=== PATIENT | male | born 1955 | race Caucasian/White ===

== ENCOUNTER 2020-05-15 16:32 | Emergency (ER) | payer OTHER ==
[~2020-05-15] VITALS: Ht 185 cm; Wt 90.0 kg
[2020-05-15] MEDS ORDERED: cefTRIAXone 1,000 MG/2.86 ml vial (IM ONLY) IM STA (18:20)
[2020-05-15] MEDS ORDERED: RABIES IMMUNE GLOBULIN 300 UNIT/ML 5 ML (HyperRAB) IM ONE ×2 (18:22→18:30)
[2020-05-15] MEDS ORDERED: RABIES VACCINE HUMAN DIPL CELL 1 ML/2.5 UNITS SYR ONE (18:22)
[2020-05-15] MEDS ORDERED: RABIES VACCINE HUMAN DIPL CELL 1 ML/2.5 UNITS SYR IM ONE (18:30)
[2020-05-15] MEDS ORDERED: LIDOCAINE 1% INJ 20 ML 20 ML VIAL INJ ONE (18:30)
--- NOTE | 2020-05-15 18:35 | ED General ---
General Chief Complaint: Bite-Animal/Human/Insect Stated Complaint: ANIMAL BIT ON RT HAND Nursing Triage Note: PT REPORTS HE WAS BITEN BY A STRAY CAT LAST PM WHILE TRYING TO PREVENT THE CAT FROM HURTING HIS DOG. RIGHT HAND HAS PUNCTURE ARROYO AND SCRATCHES ON THE FINGER SAND THE KNUCKLES. Nursing Sepsis Screen: No Definite Risk Source of Information: Patient History of Present Illness Date Seen by Provider: May 15, 2020 Time Seen by Provider: 17:02 Initial Comments 65 yo male presenting with complaints of cat bite and scratches to right hand and fingers from when he tried to break up a fight between his dog and a feral cat. In the process he has several puncture arroyo and scratches to his hands and fingers. He has redness and swelling and pain. He denies any fever or chills. The middle finger is the worst of his right hand. The swelling and redness is just on his fingers and hand and is not spreading up to his wrist or forearm. He did go to urgent care and they updated his tetanus shot and sent a prescription for oral antibiotics to the [facility] pharmacy but sent him to the ED to get Rabies vaccine and immunoglobulin. He reports an allergy to cats as well Allergies and Home Medications Allergies Coded Allergies: No Known Drug Allergies (Unverified , 05/15/20) Patient Home Medication List Home Medication List Reviewed: Yes Review of Systems Review of Systems Constitutional: No chills, No fever EENTM: no symptoms reported Respiratory: no symptoms reported Cardiovascular: no symptoms reported Gastrointestinal: no symptoms reported Genitourinary: no symptoms reported Musculoskeletal: see HPI Skin: see HPI Psychiatric/Neurological: Denies Numbness, Denies Paresthesia Hematologic/Lymphatic: Denies Easy Bleeding, Denies Easy Bruising Immunological/Allergic: see HPI Past Mxqzqdy-Pplmqp-Bxvxck Hx Past Med/Social Hx: Reviewed Nursing Past Med/Soc Hx Patient Social History Alcohol Use: Regular Use Alcohol Beverage of Choice: Beer, Whiskey Smoking Status: Never a Smoker 2nd Hand Smoke Exposure: No Recent Infectious Disease Expo: No Physical Exam Vital Signs Vital Signs - First Documented 05/15/20 17:07 Temp 37.5 Pulse 75 Resp 18 B/P (MAP) 161/98 (119) Pulse Ox 100 O2 Delivery Room Air Capillary Refill : Less Than 3 Seconds Height, Weight, BMI Height: '" Weight: lbs. oz. kg; 26.00 BMI Method: General Appearance: No Apparent Distress, WD/WN Extremity: Normal Capillary Refill, Inflammation (with redness, swelling and tender to palpation and movement of fingers and right hand. multiple puncture arroyo and abrasions on right hand and fingers. no drainage), Swelling (right hand and fingers, especially middle finger), Other (slight decrease in ROM of right middle finger due to swelling and pain) Neurologic/Psychiatric: Alert, Oriented x3, No Motor/Sensory Deficits Skin: Warm/Dry, Erythema (with swelling, puncture arroyo and scratches to right hand and fingers. Tender and warm to touch) Progress/Results/Core Measures Suspected Sepsis Recent Fever Within 48 Hours: No Infection Criteria Present: Suspected New Infection New/Unexplained Altered Menta: No Sepsis Screen: No Definite Risk SIRS Temperature: Pulse: 75 Respiratory Rate: 18 Blood Pressure 161 /98 Mean: 119 Results/Orders My Orders Orders - SIDDHARTHA LOPEZ MD Rabies Immune Globulin/Pf Inj (Hyperrab (05/15/20 18:30) Rabies Vaccine Human Dipl Cell (Rabavert (05/15/20 18:30) Ceftriaxone For Im Use (Rocephin For Im (05/15/20 18:20) Lidocaine 1% Inj 20 Ml (Xylocaine 1% Inj (05/15/20 18:30) Rabies Immune Globulin/Pf Inj (Hyperrab (05/15/20 18:22) Rabies Vaccine Human Dipl Cell (Rabavert (05/15/20 18:22) Medications Given in ED Current Medications Medications Dose Ordered Sig/Danni Route Start Time Stop Time Status Last Admin Dose Admin Lidocaine HCl 2.1 ml ONCE ONCE INJ 05/15/20 18:30 05/15/20 18:31 DC 05/15/20 18:35 2.1 ML Rabies Immune Globulin 20 UNITS/KG ONCE ONCE IM 05/15/20 18:30 05/15/20 18:31 DC 05/15/20 18:37 1,800 UNIT Rabies Vaccine Human Diploid Cell 1 ml ONCE ONCE IM 05/15/20 18:30 05/15/20 18:31 DC 05/15/20 18:39 1 ML Vital Signs/I&O 05/15/20 05/15/20 17:07 18:55 Temp 37.5 Pulse 75 75 Resp 18 16 B/P (MAP) 161/98 (119) 155/62 Pulse Ox 100 100 O2 Delivery Room Air Room Air Capillary Refill : Less Than 3 Seconds Blood Pressure Mean: 119 Progress Note : Progress Note order Rabies vaccine, Rabies immunoglobuin 20 IU/kg or 1800 IU which comes out to 6 ml, Rocephin 1 gm IM. Counseled patient on follow-up and return precautions. Advised to the redness and swelling will get a little worse before it improves with antibiotics. Advised if he was not seeing an improvement in the next 48 hours or if it continues to worsen with fevers or purulent drainage that he should return or go to [facility] as he may need IV antibiotics and admission. Departure Impression Primary Impression: Cat bite of multiple sites of right hand and fingers with infection Qualified Codes: S61.451A - Open bite of right hand, initial encounter; S61.259A - Open bite of unspecified finger without damage to nail, initial encounter; L08.9 - Local infection of the skin and subcutaneous tissue, unspecified; W55.01XA - Bitten by cat, initial encounter Additional Impression: Cellulitis of multiple sites of right hand and fingers Disposition: HOME, SELF-CARE Condition: Stable Departure-Patient Inst. Decision time for Depature: 18:35 Referrals: OSIEL ZAVALA APRN (PCP/Family) Primary Care Physician Patient Instructions: Animal Bites ED, Cellulitis (Skin Infection), Adult ED, Rabies Immune Globulin (Human), Rabies Vaccine Add. Discharge Instructions: Follow up with clinic for continued Rabies vaccine injections. Your next injections are on TuesdayMay 18 so you may have to return here or have it one day late in the clinic on Tuesday. , Make sure to take all the antibiotics prescribed for you. If the redness and swelling continues to spread up your arm or you have fevers over 101 that continue over the next 48 hours then return or check with the hospital in [place] as you may need admitted for IV antibiotics. All discharge instructions reviewed with patient and/or family. Voiced understanding. SIDDHARTHA LOPEZ MD May 15, 2020 18:35
[2020-05-15 18:55] VITALS: BP 155/62
== END 2020-05-15 18:50 | disposition home or self-care (01) ==
LOC: EDUNIT# 16:32 → ER FS 16:33
DX: S61.431A Puncture wound without foreign body of right hand, initial encounter (principal); L03.113 Cellulitis of right upper limb; Z23 Encounter for immunization; W55.01XA Bitten by cat, initial encounter
CPT/HCPCS: 90375; 90675; 99284

== ENCOUNTER 2020-05-30 12:05 | Outpatient (RCR) | payer OTHER ==
[2020-05-19 15:25] VITALS: BP 169/109
[2020-05-23 08:00] VITALS: BP 160/111
[~2020-05-30] VITALS: Ht 185.5 cm; Wt 84.0 kg
[2020-05-30 12:00] VITALS: BP 154/101
[~2020-05-30 12:05] MED LIST: RABIES VACCINE HUMAN DIPL CELL 1 ML/2.5 UNITS SYR INJ ONE
[2020-05-30] MEDS ORDERED: RABIES VACCINE HUMAN DIPL CELL 1 ML/2.5 UNITS SYR INJ ONE (15:30)
== END 2020-05-30 12:40 | disposition home or self-care (01) ==
LOC: SDC 12:05
PROVIDERS: ATTEND Family Medicine
DX: Z23 Encounter for immunization (principal)
CPT/HCPCS: 90471; 90675

== ENCOUNTER → 2020-09-02 | Outpatient (CLI) | payer OTHER ==
--- NOTE | 2020-09-02 18:30 | Diagnostic Imaging Report ---
EXAMINATION: Left shoulder 2 or more views. HISTORY: Shoulder pain. COMPARISON: None available. FINDINGS: There is a left shoulder hemiarthroplasty with superior subluxation of the humeral component. No fracture is seen. Acromioclavicular joint is normal. IMPRESSION: 1. Left shoulder hemiarthroplasty with superior subluxation of the humeral component, correlate for rotator cuff tear. Dictated by: Dictated on workstation # [id number]
== END ==
LOC: RAD FS 13:51
PROVIDERS: ATTEND Nurse Practitioner Family
DX: M25.512 Pain in left shoulder (principal); Z96.612 Presence of left artificial shoulder joint
CPT/HCPCS: 73030

== ENCOUNTER → 2020-09-09 | Outpatient (CLI) | payer OTHER ==
--- NOTE | 2020-09-09 16:10 | Diagnostic Imaging Report ---
INDICATION: Right shoulder pain. 4 views of the right shoulder are obtained. There is no prior study for comparison. FINDINGS: There is no acute fracture or dislocation. Glenohumeral joint and AC joint appear unremarkable. IMPRESSION: Negative right shoulder. Dictated by: Dictated on workstation # [id number]
== END ==
LOC: RAD FS 13:58
PROVIDERS: ATTEND Nurse Practitioner
DX: M25.511 Pain in right shoulder (principal)
CPT/HCPCS: 73030

== ENCOUNTER 2020-09-18 15:31 | Emergency (ER) | payer OTHER ==
[~2020-09-18] VITALS: Ht 170 cm; Wt 81.0 kg
[2020-09-18] MEDS ORDERED: BACITRACIN OINTMENT 28 GM TUBE TOP SCH (15:45)
[2020-09-18] MEDS ORDERED: LIDOCAINE 1% INJ 20 ML 20 ML VIAL INJ ONE (15:45)
--- NOTE | 2020-09-18 15:49 | ED Integumentary General ---
General Chief Complaint: Trauma-Non Activation Stated Complaint: HEAD LAC History of Present Illness Date Seen by Provider: Sep 18, 2020 Time Seen by Provider: 15:45 Initial Comments 62-year-old male presents with a cut to his forehead. States he fell last night and went back to sleep and did not seek medical care till the afternoon and stated no about once. He has applied antibiotic medicated. Denies headache, confusion or dizziness. He is not taking blood thinner denies any weakness, difficulty walking or speaking. Denies neck pain, back or extremity pain. Allergies and Home Medications Allergies Coded Allergies: No Known Drug Allergies (Unverified , 05/15/20) Patient Home Medication List Home Medication List Reviewed: Yes Review of Systems Review of Systems Constitutional: No dizziness, No fever, No malaise, No weakness EENTM: see HPI, no symptoms reported; No hearing loss, No ear pain, No blurred vision, No vision loss, No hoarseness, No epistaxis, No nose congestion, No nose pain Respiratory: no symptoms reported Cardiovascular: no symptoms reported; No edema, No palpitations, No syncope Gastrointestinal: No abdominal pain, No loss of appetite, No nausea, No vomiting Musculoskeletal: No back pain, No joint pain, No neck pain Skin: see HPI, other (facial lac) Psychiatric/Neurological: See HPI; Denies Headache, Denies Numbness, Denies Paresthesia, Denies Seizure, Denies Tingling, Denies Tremors, Denies Weakness Past Pszdtey-Eldubq-Beygil Hx Past Med/Social Hx: Reviewed Nursing Past Med/Soc Hx Patient Social History Alcohol Beverage of Choice: Beer, Whiskey 2nd Hand Smoke Exposure: No Physical Exam Vital Signs Vital Signs - First Documented 09/18/20 15:35 Temp 36.1 Pulse 80 Resp 16 B/P (MAP) 154/81 (105) Pulse Ox 97 O2 Delivery Room Air Capillary Refill : General Appearance: WD/WN, no apparent distress HEENT: PERRL/EOMI, normal ENT inspection Neck: non-tender, full range of motion, supple Cardiovascular: regular rate, rhythm, no edema, no JVD Respiratory: chest non-tender, lungs clear, normal breath sounds Back: normal inspection, no CVA tenderness Extremities: normal range of motion, non-tender, normal inspection, no pedal edema, no calf tenderness Neurologic/Psychiatric: hhas II-XII nml as tested, no motor/sensory deficits, alert, normal mood/affect, oriented x 3 Skin: normal color, warm/dry, other (stellate laceration- lower, right central forehead above R eyebrow and nose- 5cm total) Procedures/Interventions Wound Location: Face Wound Length (cm): 5 Wound's Depth, Shape: stellate, contused tissue Wound Explored: no foreign body removed Irrigated w/ Saline (ccs): 20 Anesthesia: 1% Lidocaine Volume Anesthetic (ccs): 4 Suture: Vicryl Suture Size: 4-0 Number of Sutures: 6 Sterile Dressing Applied?: Yes Progress/Results/Core Measures Results/Orders My Orders Orders - ROSIO RESENDEZ DO Lidocaine 1% Inj 20 Ml (Xylocaine 1% Inj (09/18/20 15:45) Bacitracin Ointment (Bacitracin Ointment (09/18/20 15:45) Medications Given in ED Current Medications Medications Dose Ordered Sig/Danni Route Start Time Stop Time Status Last Admin Dose Admin Lidocaine HCl 20 ml ONCE ONCE INJ 09/18/20 15:45 09/18/20 15:46 DC 09/18/20 15:56 20 ML Vital Signs/I&O 09/18/20 15:35 Temp 36.1 Pulse 80 Resp 16 B/P (MAP) 154/81 (105) Pulse Ox 97 O2 Delivery Room Air Departure Impression Primary Impression: Facial laceration Qualified Codes: S01.81XA - Laceration without foreign body of other part of head, initial encounter Additional Impression: Fall from ground level Disposition: 01 HOME, SELF-CARE Condition: Improved Departure-Patient Inst. Decision time for Depature: 16:18 Referrals: SELFDIONISIO MD (PCP/Family) Primary Care Physician Patient Instructions: Laceration Repair With Stitches (DC) Add. Discharge Instructions: Your stitches are "dissolvable" and do not typically need to be removed. See your doctor in 5 to 7 days for a re-evaluation of your wound. All discharge instructions reviewed with patient and/or family. Voiced understanding. ROSIO RESENDEZ DO Sep 18, 2020 15:49
[2020-09-18] MEDS ORDERED: PANT40TA52 (15:53)
[2020-09-18] MEDS ORDERED: LOSA100T57 (15:53)
[2020-09-18] MEDS ORDERED: METO50TA15 (15:53)
[2020-09-18 16:25] VITALS: BP 154/81
== END 2020-09-18 16:25 | disposition home or self-care (01) ==
LOC: EDUNIT# 15:31 → ER FS 15:32
DX: S01.81XA Laceration without foreign body of other part of head, initial encounter (principal); W18.30XA Fall on same level, unspecified, initial encounter
CPT/HCPCS: 12002

== ENCOUNTER 2020-09-19 12:20 | Emergency (ER) | payer OTHER ==
[~2020-09-19 12:20] MED LIST changes: +LOSA100T57; +METO50TA15; +PANT40TA52; -RABIES VACCINE HUMAN DIPL CELL 1 ML/2.5 UNITS SYR INJ ONE
[2020-09-19 12:32] VITALS: BP 138/86
--- NOTE | 2020-09-19 12:33 | ED EENT ---
History of Present Illness General Chief Complaint: Facial Problems Stated Complaint: FACIAL SWELLING History of Present Illness Date Seen by Provider: Sep 19, 2020 Time Seen by Provider: 12:27 Initial Comments 65-year-old male presents for recheck following a fall. Patient fell yesterday and was seen in the ER. Patient has sutures above his right eye and forehead. Today he presents with bilateral periorbital swelling swelling around his nose. His nose does appear to be crooked as with possible fracture. Patient just wanted make sure that the swelling was a concern. No nausea vomiting loss of consciousness, headache, vision changes. Allergies and Home Medications Allergies Coded Allergies: No Known Drug Allergies (Unverified , 05/15/20) Patient Home Medication List Home Medication List Reviewed: Yes Review of Systems Review of Systems Constitutional: No chills, No dizziness, No fever Eyes: See HPI Ears: No Symptoms Reported Nose: see HPI Mouth: no symptoms reported Throat: no symptoms reported Respiratory: no symptoms reported Cardiovascular: no symptoms reported Musculoskeletal: no symptoms reported Skin: no symptoms reported Past Qifpcoo-Hfyern-Eqdaqu Hx Past Med/Social Hx: Reviewed Nursing Past Med/Soc Hx Patient Social History Alcohol Use: Denies Use Number of Drinks Today: GG Alcohol Beverage of Choice: Beer, Whiskey Smoking Status: Never a Smoker 2nd Hand Smoke Exposure: No Past Medical History Surgeries: Yes Orthopedic Respiratory: No Cardiac: Yes Hypertension Neurological: No Genitourinary: No Gastrointestinal: Yes Gastroesophageal Reflux Musculoskeletal: No Endocrine: No HEENT: No Cancer: No Psychosocial: No Integumentary: No Physical Exam Height, Weight, BMI Height: '" Weight: lbs. oz. kg; 28.00 BMI Method: General Appearance: no apparent distress Eyes: bilateral eye PERRL, bilateral eye EOMI, bilateral eye other (Bilateral periorbital swelling/contusion) Neck: full range of motion, supple Cardiovascular: normal peripheral pulses, regular rate, rhythm Respiratory: lungs clear, normal breath sounds Gastrointestinal: non tender, soft Neurologic/Psychiatric: alert, normal mood/affect, oriented x 3 Skin: normal color, warm/dry Procedures/Interventions Suture Size: 4-0 Departure Impression Primary Impression: Contusion of face Qualified Codes: S00.83XA - Contusion of other part of head, initial encounter Additional Impression: Contusion of nose Qualified Codes: S00.33XA - Contusion of nose, initial encounter Disposition: HOME, SELF-CARE Condition: Stable Departure-Patient Inst. Referrals: SELF,DIONISIO BAUM (PCP/Family) Primary Care Physician Patient Instructions: Contusion (DC), Nose Fracture (DC) Add. Discharge Instructions: Follow-up with ENT for recheck of your nose once swelling has gone down. You may use cool ice pack to help with the swelling. Tylenol ibuprofen as needed for pain. Follow-up with your primary care provider next week if you need ENT referral All discharge instructions reviewed with patient and/or family. Voiced understanding. SAVAGE SWEET DO Sep 19, 2020 12:33
== END 2020-09-19 12:35 | disposition home or self-care (01) ==
LOC: EDUNIT# 12:20 → ER FS 12:21
DX: S00.33XA Contusion of nose, initial encounter (principal); I10 Essential (primary) hypertension; W19.XXXA Unspecified fall, initial encounter
CPT/HCPCS: 99283